=== PATIENT | female | born 1960 | race African-American/Black ===

== ENCOUNTER 2022-02-11 13:54 | Emergency (ER) | payer MEDICAID ==
[~2022-02-11] VITALS: Ht 165.1 cm; Wt 46.0 kg
[2022-02-11] MEDS ORDERED: MORPHINE SULFATE 4 MG/ML CPJ (NOT FOR IM USE) IV STA (14:01)
[2022-02-11] MEDS ORDERED: ONDANSETRON HCL 4MG/2ML INJ IV STA (14:01)
[2022-02-11] MEDS ORDERED: SODIUM CHLORIDE 0.9% 1,000 ML IV ONE (14:15)
[2022-02-11 14:47] LABS: BASOPHILS % 0.5 % (0.0-2.0); EOSINOPHILS % 2.5 % (0.0-5.0); HEMATOCRIT. 44.9 % (36.0-48.0); HEMOGLOBIN. 15.1 g/dL (12.0-16.0); LYMPHOCYTES % 44.3 % (20.0-50.0); MEAN CORPUSCULAR HEMOGLOBIN 29.6 pg (28.0-32.0); MEAN CORPUSCULAR VOLUME 87.7 fL (81.0-99.0); MEAN PLATELET VOLUME 9.2 fl (7.4-10.4); MONOCYTES % 12.1 % (2.0-8.0); NEUTROPHILS % 40.6 % (40.0-76.0); PLATELET 178 x1000/uL (130-400); RED BLOOD CELL COUNT 5.12 mill/uL (4.2-5.4); RED CELL DISTRIBUTION WIDTH 13.7 % (11.6-14.6)
[2022-02-11 14:54] LABS: CHLORIDE 101 mEq/L (98-107)
[2022-02-11] MEDS ORDERED: ONDANSETRON HCL 4MG/2ML INJ IV NR (16:00)
[2022-02-11] MEDS ORDERED: POTASSIUM CHLORIDE 20MEQ TABLET SR PO NR (16:00)
[2022-02-11] MEDS ORDERED: MORPHINE SULFATE 4 MG/ML CPJ (NOT FOR IM USE) IV NR (16:00)
[2022-02-11 17:02] LABS: CLARITY URINE CLEAR (CLEAR); COLOR URINE YELLOW (YELLOW); KETONES URINE NEGATIVE (NEGATIVE); LEUKOCYTE ESTERASE URINE TRACE (NEGATIVE); NITRITE URINE NEGATIVE (NEGATIVE); OCCULT BLOOD URINE NEGATIVE (NEGATIVE); PROTEIN URINE NEGATIVE (NEGATIVE); SPECIFIC GRAVITY URINE 1.006 (1.005-1.030); UROBILINOGEN URINE 0.2 E.U./dL (0.2-1.0)
[2022-02-11] MEDS ORDERED: POTA20TA82 MT (17:49)
[2022-02-11] MEDS ORDERED: ACET-2708 MT (17:49)
[2022-02-11] MEDS ORDERED: METO-293 MT (17:49)
[2022-02-11 18:20] VITALS: BP 119/76
== END 2022-02-11 18:30 | disposition home or self-care (01) ==
LOC: ER 14:08
DX: R11.2 Nausea with vomiting, unspecified (principal); R19.7 Diarrhea, unspecified; R10.30 Lower abdominal pain, unspecified; I10 Essential (primary) hypertension; E78.00 Pure hypercholesterolemia, unspecified; Z90.49 Acquired absence of other specified parts of digestive tract; Z88.5 Allergy status to narcotic agent
CPT/HCPCS: 36415; 71045; 74176; 80053; 81003; 83605; 83690; 85025; 96361; 96374; 96375; 99285; J2270; J2405; J7030